=== PATIENT | female | born 1995 | race Caucasian/White ===

== ENCOUNTER 2020-05-04 07:17 | Emergency (ER) | payer OTHER ==
[2020-05-04 07:26] VITALS: BMI 31.3
--- NOTE | 2020-05-04 07:41 | PDOC ---
History of Present Illness <Bradley Alcantara - Last Filed: 05/04/20 10:04> - History of Present Illness Initial Comments: 20 yo female with PMH of penicillin allergy reaction presents with 6 hour hx of left lip swelling. She had fallen asleep last night without symptoms and woke up around 4am feeling pressure in her mouth. She denies any difficulty breathing, drooling, change in voice, cp, rashes. She has been on control for years and denies taking any new medications or any changes in her diet. Her last allergic reaction was towards penicillin where she broke out in hives. <Néstor Jesus - Last Filed: 05/04/20 11:24> - General Chief Complaint: Edema Stated Complaint: LIP SWELLING Time Seen by Provider: 05/04/20 07:22 Past History <Bradley Alcantara - Last Filed: 05/04/20 10:04> - Medical History Anemia: No Asthma: No Cardiac Disorders: No Diabetes: No HTN: No - Psycho-Social/Smoking History Smoking Status: No Smoking History: Never smoked Number of Cigarettes Smoked Daily: 0 <Néstor Jesus - Last Filed: 05/04/20 11:24> - Medical History Allergies/Adverse Reactions: Allergies Allergy/AdvReac Type Severity Reaction Status Date / Time amoxicillin [Amoxicillin] Allergy Verified 05/04/20 07:53 Penicillins Allergy Verified 05/04/20 07:53 Home Medications: Ambulatory Orders Acetaminophen [Tylenol .Regular Strength -] 650 mg PO Q6H PRN #0 tablet 09/15/16 predniSONE [Deltasone -] 50 mg PO DAILY 3 Days #3 tablet 05/04/20 Review of Systems - Review of Systems Able to Perform ROS?: Yes Constitutional: No: Chills, Fever, Weakness HEENTM: Yes: Mouth Swelling. No: Throat Pain, Mouth Pain, Difficulty Swallowing Respiratory: No: Cough, Orthopnea, Shortness of Breath, Hemoptysis Cardiac (ROS): No: Chest Pain, Irregular Heart Rate, Syncope ABD/GI: No: Diarrhea, Nausea, Vomiting : No: Dysuria, Discharge, Frequency Musculoskeletal: No: Muscle Pain, Muscle Weakness Integumentary: No: Bruising, Erythema, Pruritus, Rash Neurological: No: Headache, Weakness, Dizziness Psychiatric: No: Anxiety, Depression, Mood Swings Endocrine: No: Intolerance to Cold, Intolerance to Heat, Unexplained Weight Gain <Néstor Jesus - Last Filed: 05/04/20 11:24> *Physical Exam - Vital Signs Last Vital Signs Temp Pulse Resp BP Pulse Ox 97.1 F L 71 17 122/69 100 05/04/20 07:20 05/04/20 07:20 05/04/20 07:20 05/04/20 07:20 05/04/20 07:20 <Bradley Alcantara - Last Filed: 05/04/20 10:04> - Physical Exam General Appearance: Yes: Nourished, Appropriately Dressed. No: Apparent Distress HEENT: positive: EOMI. negative: Muffled/Hoarse voice, Pharyngeal Erythema, Tonsillar Exudate, Excessive drooling Neck: negative: Tender, Decreased range of motion, Stridor Respiratory/Chest: positive: Lungs Clear, Normal Breath Sounds. negative: Respiratory Distress Cardiovascular: positive: Regular Rhythm, Regular Rate, S1, S2 Gastrointestinal/Abdominal: positive: Flat, Soft. negative: Tender, Organomegaly Extremity: positive: Normal Capillary Refill, Normal Inspection, Normal Range of Motion Integumentary: positive: Normal Color, Dry, Warm. negative: Erythema, Hives, Petechiae, Rash Neurologic: positive: oral surgeon II-XII NML intact, Fully Oriented, Alert, Normal Mood/Affect <Néstor Jesus - Last Filed: 05/04/20 11:24> ED Treatment Course - Medications Given in the ED: ED Medications Discontinued Medications Generic Name Dose Route Start Last Admin Trade Name Teresa PRN Reason Stop Dose Admin Diphenhydramine HCl 25 mg 05/04/20 07:45 05/04/20 08:01 Benadryl Injection - IVPUSH 05/04/20 07:46 25 mg ONCE ONE Administration Methylprednisolone Sodium Succinate 125 mg 05/04/20 07:42 05/04/20 08:01 Solu-Medrol - IVPUSH 05/04/20 07:43 125 mg ONCE ONE Administration <Bradley Alcantara - Last Filed: 05/04/20 10:04> Medical Decision Making - Medical Decision Making 24 yo female presents with oral swelling localized to her left lower lip and cheek. This is most likely an allergic reaction with an unknown antigen.She has been given Benadryl and Solumedrol. Minimal improvement after being monitored for 2 hours. Discharged home and told to come back if symptoms worsen. Follow up recommendations with rheumatology. 05/04/20 11:23 <Néstor Jesus - Last Filed: 05/04/20 11:24> Discharge - Discharge Information Problems reviewed: Yes - Admission No <Bradley Alcantara - Last Filed: 05/04/20 10:04> - Discharge Information Problems reviewed: Yes - Admission No <Nsétor Jesus - Last Filed: 05/04/20 11:24> - Discharge Information Clinical Impression/Diagnosis: Lip swelling Disposition: HOME - Additional Discharge Information Prescriptions: predniSONE [Deltasone -] 50 mg PO DAILY 3 Days #3 tablet - Follow up/Referral Referrals: Jaime Astudillo MD [Staff Physician] - Bo Powell MD [Non Staff, Medical] - Gilmar Jones MD [Staff Physician] - - Patient Discharge Instructions Patient Printed Discharge Instructions: DI for Anaphylaxis Additional Instructions: Please make an appointment to see the Rhematologist and Freight Handler referred to you within 24 hours. See your Primary Doctor within 48 hours. Take the Steroid Prednisone for the next 3 days as prescribed. Return to the ER immediately for new or concerning symptoms including but not limited to: further lip swelling, tongue swelling,m drooling, difficulty breathing, changes in your voice, sore/scratchy throat. Thank you - Post Discharge Activity Work/Back to School Note: Back to Work
[2020-05-04] MEDS ORDERED: methylPREDNISolone NA SUCC 125 MG/2 ML VIAL IVPUSH ONE (07:42)
[2020-05-04] MEDS ORDERED: DEXAMETHASONE SOD PHOSPHATE 10 MG/1 ML VIAL ONE (07:48)
[2020-05-04] MEDS ORDERED: methylPREDNISolone NA SUCC 125 MG/2 ML VIAL ONE (07:55)
--- NOTE | 2020-05-04 08:09 | PDOC ---
Attending Attestation - Resident Resident Name: Néstor Jesus - ED Attending Attestation I have performed the following: I have examined & evaluated the patient, The case was reviewed & discussed with the resident, I agree w/resident's findings & plan, Exceptions are as noted - HPI HPI: 05/04/20 08:06 24 F with no PMH presents to ED with L lower lip swelling that began this morning. Pt woke up at 4 am with swelling to her lip. Denies eating or drinking anything new. No medications. Denies tongue swelling. No hoarseness, no SOB, no difficulty swallowing. No rash. - Physicial Exam PE: 05/04/20 08:08 GENERAL: Awake, alert, and fully oriented, in no acute distress. HEAD: No signs of trauma EYES: PERRLA, EOMI, sclera anicteric, conjunctiva clear ENT: + L lower lip edema, no tongue or uvula swelling NECK: Nontender, no stepoffs, Normal ROM, supple, no lymphadenopathy, JVD, or masses LUNGS: Breath sounds equal, clear to auscultation bilaterally. No wheezes, and no crackles HEART: Regular rate and rhythm, normal S1 and S2, no murmurs, rubs or gallops ABDOMEN: Soft, nontender, normoactive bowel sounds. No guarding, no rebound. No masses EXTREMITIES: Normal range of motion, no edema. No clubbing or cyanosis. No cords, erythema, or tenderness NEUROLOGICAL: Cranial nerves II through XII intact. 5/5 strength and sensation in all extremities, Normal speech, normal gait, normal cerebellar function SKIN: Warm, Dry, normal turgor, no rashes or lesions noted. - Medical Decision Making 05/04/20 08:09 24 F with likely allergic reaction, unclear trigger. No evidence of airway involvement at this time. - Steroids, benadryl - Reassess 05/04/20 10:03 Pt reassessed - swelling improving, continues to have patent airway. Pt requesting to leave. Will DC with strict return precautions and allergy f/u. Pt is well appearing, with normal vitals. Clinically stable for DC at this time. I discussed the physical exam findings, ancillary test results and final diagnoses with the patient. I answered all of the patient's questions. The patient was satisfied with the care received and felt comfortable with the discharge plan and treatment plan. The patient agrees to follow up with the primary care physician within 24-72 hours. Please note this patient was evaluated during the COVID-19 crisis with the presidential [place] Act Declaration and the [place] governor executive order number 202. He/she was evaluated and clinical decisions were made relative to healthcare system resources as well as clinical picture during a pandemic crisis situation. Discharge - Discharge Information Problems reviewed: Yes Clinical Impression/Diagnosis: Lip swelling, Allergic reaction, Skin abnormality Disposition: HOME - Additional Discharge Information Prescriptions: predniSONE [Deltasone -] 50 mg PO DAILY 3 Days #3 tablet - Follow up/Referral Referrals: Bo Powell MD [Non Staff, Medical] - Jaime Astudillo MD [Staff Physician] - Gilmar Jones MD [Staff Physician] - - Patient Discharge Instructions Patient Printed Discharge Instructions: DI for Anaphylaxis Additional Instructions: Please make an appointment to see the Rhematologist and Balance Wheel Hand Filer referred to you within 24 hours. See your Primary Doctor within 48 hours. Take the Steroid Prednisone for the next 3 days as prescribed. Return to the ER immediately for new or concerning symptoms including but not limited to: further lip swelling, tongue swelling,m drooling, difficulty breathing, changes in your voice, sore/scratchy throat. Thank you - Post Discharge Activity Work/Back to School Note: Back to Work
[2020-05-04 10:19] VITALS: BP 110/60; PULSE 65; TEMP 98.1
== END 2020-05-04 10:41 | disposition home or self-care (01) ==
LOC: JER 07:17
PROC: 3E033GC Introduction of Other Therapeutic Substance into Peripheral Vein, Percutaneous Approach (ICD-10-PCS; principal; 2020-05-04)
DX: R22.0 Localized swelling, mass and lump, head (principal)
CPT/HCPCS: 99284-25

== ENCOUNTER 2020-09-11 08:37 | Emergency (ER) | payer OTHER ==
[2020-09-11 08:43] VITALS: BP 102/54; PULSE 88; TEMP 98; BMI 24.2
[2020-09-11] MEDS ORDERED: diphenhydrAMINE HCL 25 MG CAPSULE (FP) PO ONE ×2 (09:02→09:17)
[2020-09-11] MEDS ORDERED: predniSONE 20 MG TABLET (UD) PO ONE (09:02)
[2020-09-11] MEDS ORDERED: FAMOTIDINE 20 MG TABLET PO ONE (09:03)
[2020-09-11] MEDS ORDERED: predniSONE 20 MG TABLET (UD) ONE (09:17)
[2020-09-11] MEDS ORDERED: FAMOTIDINE 20 MG TABLET ONE (09:17)
== END 2020-09-11 09:58 | disposition home or self-care (01) ==
LOC: JER 08:37
DX: T78.3XXA Angioneurotic edema, initial encounter (principal)
CPT/HCPCS: 99284-25

== ENCOUNTER 2020-09-24 13:54 | Emergency (ER) | payer OTHER ==
[2020-09-24 14:06] VITALS: BP 110/54; PULSE 78; TEMP 98.5; BMI 24.2
== END 2020-09-24 14:48 | disposition home or self-care (01) ==
LOC: JERFT 13:54
DX: Z20.2 Contact with and (suspected) exposure to infections with a predominantly sexual mode of transmission (principal)
CPT/HCPCS: 36415; 87491; 87591; 99283-25

== ENCOUNTER 2025-01-11 18:25 | Inpatient (IN) | payer OTHER ==
[2025-01-11 18:41] VITALS: BMI 26.2
[2025-01-11] MEDS ORDERED: methylPREDNISolone NA SUCC 125 MG/2 ML VIAL ONE (20:51)
[2025-01-11] MEDS ORDERED: FAMOTIDINE 20 MG/50 ML IVPB 20 MG/50 ML MG IVPB ONE (20:51)
[2025-01-11 20:56] LABS: ABSOLUTE IMMATURE GRANULOCYTES 0.42 x10^3/uL (0.0-0.031); BASOPHILS # 0.02 x10^3/uL (0.01-0.08); HEMATOCRIT 24.9 % (34.1-44.9); MCHC 32.1 g/dl (32.2-35.5); MEAN CELL VOLUME 94.7 fl (79.4-94.8); MEAN PLT VOLUME 8.7 fl (9.4-12.3); MONOCYTE # 0.81 x10^3/uL (0.24-0.86); MONOCYTE % 5.5 % (4.7-12.5); PLATELET COUNT # 423 x10^3/uL (182-369); RDW 14.4 % (12.1-16.5)
[2025-01-11] MEDS: SODIUM CHLORIDE 0.9% 500 ML INFUS.BAG IV ONE (20:59)
[2025-01-11] MEDS: FAMOTIDINE 20 MG/50 ML IVPB 20 MG/50 ML MG IVPB ONE (20:59)
[2025-01-11 21:08] LABS: POTASSIUM 3.5 mmol/L (3.5-5.1)
[2025-01-11 21:11] LABS: CALCIUM 8.7 mg/dL (8.5-10.1)
[2025-01-11 21:12] LABS: ALBUMIN 3.3 g/dl (3.4-5.0); BLOOD UREA NITROGEN 15.2 mg/dL (7-18)
[2025-01-11 21:15] LABS: CREATININE 0.6 mg/dL (0.55-1.3)
[2025-01-11 21:16] LABS: BILIRUBIN,TOTAL 0.5 mg/dL (0.2-1); TOT PROT 6.3 g/dl (6.4-8.2)
[2025-01-11] MEDS: methylPREDNISolone NA SUCC 125 MG/2 ML VIAL IVPUSH ONE (21:38)
[2025-01-11] MEDS ORDERED: diphenhydrAMINE HCL 50 MG CAPSULE PO PRN (23:44)
[2025-01-12 00:22] VITALS: RESP 18
[2025-01-12] MEDS: diphenhydrAMINE HCL 25 MG CAPSULE (FP) PO SCH (01:38)
[2025-01-12] MEDS: methylPREDNISolone NA SUCC 40 MG/1 ML VIAL IVPUSH SCH (01:38)
[2025-01-12] MEDS: MELATONIN 5 MG TABLETS PO ONE (01:39)
[2025-01-12] MEDS: SULFAMETHOXAZOLE/TRIMETHOPRIM 800MG/160MG D.S. TABLET PO SCH (01:39)
[2025-01-12] MEDS: ACETAMINOPHEN 325 MG TABLET (FP) PO ONE (01:39)
[2025-01-12] MEDS: FAMOTIDINE 20 MG TABLET PO SCH (01:39)
[2025-01-12 08:53] LABS: HEMATOCRIT 22.9 % (34.1-44.9); HEMOGLOBIN 7.3 g/dL (11.2-15.7); MCHC 31.9 g/dl (32.2-35.5); MEAN CELL VOLUME 94.2 fl (79.4-94.8); MEAN PLT VOLUME 8.9 fl (9.4-12.3); PLATELET COUNT # 420 x10^3/uL (182-369)
[2025-01-12 09:23] LABS: POTASSIUM 4.2 mmol/L (3.5-5.1)
[2025-01-12 09:31] LABS: CALCIUM 8.5 mg/dL (8.5-10.1)
[2025-01-12 09:32] LABS: BILIRUBIN,TOTAL 0.3 mg/dL (0.2-1); BLOOD UREA NITROGEN 11.3 mg/dL (7-18); MAGNESIUM 2.2 mg/dL (1.8-2.4); TOT PROT 5.6 g/dl (6.4-8.2)
[2025-01-12 09:34] LABS: CREATININE 0.4 mg/dL (0.55-1.3); PHOSPHOROUS 3.9 mg/dL (2.5-4.9)
[2025-01-12] MEDS ORDERED: FLUCONAZOLE 50 MG TABLET PO SCH (10:00)
[2025-01-12] MEDS: FERROUS SO4 325 MG TABLET (FP) PO SCH (10:07)
[2025-01-12] MEDS: ENOXAPARIN NA (PORCINE) 40 MG/0.4 ML DISP.SYRIN SQ SCH (10:12)
[2025-01-12 13:40] VITALS: BP 154/90; PULSE 94; TEMP 97.9
== END 2025-01-12 13:46 | disposition home or self-care (01) | DRG 385 ==
LOC: JER 18:25 → JERBED 22:26 → OBSVTOIN 23:36 → J7W 23:50
PROVIDERS: ADMIT Hospitalist
DX: L27.1 Localized skin eruption due to drugs and medicaments taken internally (principal); T50.995A Adverse effect of other drugs, medicaments and biological substances, initial encounter; L28.2 Other prurigo; R00.0 Tachycardia, unspecified; R21 Rash and other nonspecific skin eruption; F12.90 Cannabis use, unspecified, uncomplicated; L29.9 Pruritus, unspecified; D72.829 Elevated white blood cell count, unspecified; D64.9 Anemia, unspecified
CPT/HCPCS: 36415; 71045-TC-FY; 80053; 82728; 83540; 83550; 83735; 84100; 84466; 84703; 85025; 85027; 99285-25; G0378

== ENCOUNTER 2025-06-06 17:11 | Emergency (ER) | payer OTHER ==
[2025-06-06 17:39] VITALS: TEMP 98.4; BMI 30.1
[2025-06-06] MEDS: SODIUM CHLORIDE 0.9% 500 ML INFUS.BAG IV ONE ×2 (17:39→18:39)
[2025-06-06 18:01] LABS: MCHC 33.1 g/dl (32.2-35.5); MEAN CELL VOLUME 91.3 fl (79.4-94.8); MEAN PLT VOLUME 9.5 fl (9.4-12.3); RDW 14.4 % (12.1-16.5)
[2025-06-06 18:31] LABS: GLUCOSE,RANDOM 102.0 mg/dL (74-106); TOT PROT 7.2 g/dl (6.4-8.2)
[2025-06-06 18:32] LABS: CO2 22.0 mmol/L (21-32)
[2025-06-06 18:34] LABS: ALK PHOS 72.0 U/L (40-150)
[2025-06-06 18:37] LABS: CREATININE 0.63 mg/dL (0.55-1.3); SGOT/AST 21.0 U/L (5-34); SGPT/ALT 14.0 U/L (0-55)
[2025-06-06] MEDS: SODIUM CHLORIDE 0.9% 1000 ML INFUS.BAG IV ONE (19:30)
[2025-06-06 21:42] VITALS: BP 101/65; PULSE 86; RESP 18
== END 2025-06-06 23:42 | disposition home or self-care (01) ==
LOC: JER 17:11
PROC: 3E033GC Introduction of Other Therapeutic Substance into Peripheral Vein, Percutaneous Approach (ICD-10-PCS; principal; 2025-06-06)
DX: R21 Rash and other nonspecific skin eruption (principal); L29.9 Pruritus, unspecified; L53.9 Erythematous condition, unspecified; R11.2 Nausea with vomiting, unspecified; M53.3 Sacrococcygeal disorders, not elsewhere classified; R19.7 Diarrhea, unspecified; I95.9 Hypotension, unspecified; T88.6XXA Anaphylactic reaction due to adverse effect of correct drug or medicament properly administered, initial encounter; T36.0X5A Adverse effect of penicillins, initial encounter
CPT/HCPCS: 36415; 80053; 82962; 83520; 85025; 86850; 86900; 86901; 93005; 93010; 99284-25